=== PATIENT | female | born 1955 | race Caucasian/White ===

== ENCOUNTER 2018-05-19 12:28 | Emergency (ER) | payer MEDICARE ==
[~2018-05-19] VITALS: Ht 152.4 cm; Wt 53.6 kg
[2018-05-19 12:35] VITALS: BP 143/73
== END 2018-05-19 13:25 | disposition home or self-care (01) ==
LOC: ER 12:29
DX: J32.9 Chronic sinusitis, unspecified (principal); M19.90 Unspecified osteoarthritis, unspecified site; G89.29 Other chronic pain; F17.200 Nicotine dependence, unspecified, uncomplicated; Z76.0 Encounter for issue of repeat prescription; Z98.890 Other specified postprocedural states; Z88.2 Allergy status to sulfonamides
CPT/HCPCS: 99281